=== PATIENT | male | born 1970 | race Caucasian/White ===

== ENCOUNTER 2022-01-09 09:09 | Observation (INO) | payer OTHER ==
[2022-01-09 10:36] LABS: BASO % 0.3 % (0-2.0); EOS % 0.3 % (0-4.5); HEMATOCRIT 42.9 % (35.4-49); HEMOGLOBIN 14.5 GM/dL (11.7-16.9); LYMPH % 12.9 % (8-40); MCH 28.6 pg (25.7-33.7); MCHC 33.8 g/dl (32.0-35.9); MEAN CELL VOLUME 84.5 fl (80-96); MEAN PLT VOLUME 7.1 fl (7.5-11.1); MONO % 5.6 % (3.8-10.2); NEUT % 80.9 % (42.8-82.8); PLATELET COUNT 190 10^3/uL (134-434); RBC 5.08 M/mm3 (4.00-5.60); RDW 13.2 % (11.9-15.9); WHITE BLOOD COUNT 8.1 K/mm3 (4.0-10.0)
[2022-01-09 10:46] LABS: EPI CELLS 4 /uL (0-25.1); HYALINE CASTS 1 /uL (0-3.1); PH,URINE 7.5 (5.0-8.0); URINE APPEARANCE CLEAR; URINE BACTERIA 3 /uL (0-1359); URINE BILIRUBIN NEGATIVE (NEGATIVE); URINE COLOR YELLOW; URINE GLUCOSE (UA) NEGATIVE (NEGATIVE); URINE KETONE TRACE (NEGATIVE); URINE LEUK ESTERASE NEGATIVE (NEGATIVE); URINE NITRITE NEGATIVE (NEGATIVE); URINE PROTEIN NEGATIVE (NEGATIVE); URINE RBC 31 /uL (0-23.9); URINE UROBILINOGEN 0.2 mg/dL (0.2-1.0); URINE WBC 5 /uL (0-25.8)
[2022-01-09 11:03] LABS: CALCIUM 8.8 mg/dL (8.5-10.1)
[2022-01-09 11:04] LABS: ALBUMIN 4.2 g/dl (3.4-5.0)
[2022-01-09 11:07] LABS: CREATININE 0.9 mg/dL (0.55-1.3)
[2022-01-09 11:09] LABS: BILIRUBIN,TOTAL 0.5 mg/dL (0.2-1); TOT PROT 7.2 g/dl (6.4-8.2)
[2022-01-09] MEDS ORDERED: SODIUM CHLORIDE 0.9% 500 ML INFUS.BAG IV ONE (13:58)
[2022-01-09] MEDS ORDERED: ACETAMINOPHEN 1000 MG/100 ML BAG IVPB ONE (13:58)
[2022-01-09] MEDS ORDERED: KETOROLAC TROMETHAMINE 15 MG/ML VIAL IVPUSH ONE (13:58)
[2022-01-09] MEDS ORDERED: TAMSULOSIN HCL 0.4 MG CAP PO ONE (13:58)
[2022-01-09] MEDS ORDERED: ACETAMINOPHEN 1000 MG/100 ML BAG IVPB PRN (14:36)
[2022-01-09] MEDS ORDERED: LACTATED RINGERS SOLUTION 1,000 ML/1,000 ML INFUS.BAG IV SCH (14:45)
[2022-01-09] MEDS ORDERED: TAMSULOSIN HCL 0.4 MG CAP ONE (15:21)
[2022-01-09] MEDS ORDERED: KETOROLAC TROMETHAMINE 15 MG/ML VIAL IVPUSH PRN (19:00)
[2022-01-10] MEDS ORDERED: BENAZEPRIL HCL 40 MG PO SCH (07:00)
[2022-01-10] MEDS ORDERED: LISINOPRIL 20 MG TABLET PO SCH (07:00)
[2022-01-10] MEDS ORDERED: amLODIPine BESYLATE 5 MG TABLET (FP) PO SCH (07:00)
[2022-01-10 07:15] VITALS: BMI 26.6
[2022-01-10 11:02] LABS: HEMATOCRIT 42.1 % (35.4-49); MCH 28.2 pg (25.7-33.7); MCHC 33.3 g/dl (32.0-35.9); MEAN CELL VOLUME 84.7 fl (80-96); PLATELET COUNT 161 10^3/uL (134-434); RBC 4.96 M/mm3 (4.00-5.60); WHITE BLOOD COUNT 4.3 K/mm3 (4.0-10.0)
[2022-01-10 11:10] LABS: INR 1.15 (0.83-1.09); PROTHROMBIN TIME (PATIENT) 13.2 SEC (9.7-13.0)
[2022-01-10 11:13] LABS: ACTIVATED PTT 31.8 SECONDS (25.2-36.5)
[2022-01-10 11:28] LABS: CALCIUM 8.7 mg/dL (8.5-10.1)
[2022-01-10 11:29] LABS: BLOOD UREA NITROGEN 7.8 mg/dL (7-18); MAGNESIUM 2.2 mg/dL (1.8-2.4)
[2022-01-10 11:33] LABS: CREATININE 0.8 mg/dL (0.55-1.3)
[2022-01-10 11:35] LABS: PHOSPHOROUS 2.6 mg/dL (2.5-4.9)
[2022-01-10] MEDS ORDERED: ACETAMINOPHEN 1000 MG/100 ML BAG IVPB PRN (12:50)
[2022-01-10] MEDS ORDERED: TAMSULOSIN HCL 0.4 MG CAP PO SCH (13:00)
[2022-01-10] MEDS ORDERED: LACTATED RINGERS SOLUTION 1,000 ML/1,000 ML INFUS.BAG IV SCH ×2 (13:45→15:59)
[2022-01-10] MEDS ORDERED: ONDANSETRON 4 MG/2 ML VIAL IVPUSH PRN ×2 (14:27→15:59)
[2022-01-10] MEDS ORDERED: IOVERSOL 300 MG/ML ML IV ONE ×2 (14:32→14:59)
[2022-01-10] MEDS ORDERED: LIDOCAINE HCL/PF 2% SDV 5ML VIAL ONE (14:40)
[2022-01-10] MEDS ORDERED: ceFAZolin SODIUM 1 GM VIAL ONE ×2 (14:40→15:05)
[2022-01-10] MEDS ORDERED: PROPOFOL 20 ML ONE ×2 (14:40)
[2022-01-10] MEDS ORDERED: MIDAZOLAM HCL 2 MG/2 ML SINGLE DOSE VIAL ONE (14:40)
[2022-01-10] MEDS ORDERED: ceFAZolin 2 GRAM PREMIX BAG IVPB ONE (14:47)
[2022-01-10] MEDS ORDERED: DEXAMETHASONE SOD PHOSPHATE 4 MG/1 ML VIAL ONE (15:05)
[2022-01-10] MEDS ORDERED: LIDOCAINE HCL 2% JELLY 10 ML CARTRIDGE ONE (15:19)
[2022-01-10] MEDS ORDERED: LIDOCAINE HCL 2% JELLY 10 ML CARTRIDGE TP ONE (15:20)
[2022-01-10] MEDS ORDERED: SODIUM CHLORIDE 1,000 ML IV SCH (18:00)
[2022-01-10] MEDS: KETOROLAC TROMETHAMINE 15 MG/ML VIAL IM PRN (18:16)
[2022-01-11] MEDS: KETOROLAC TROMETHAMINE 15 MG/ML VIAL IM PRN (03:56)
[2022-01-11] MEDS ORDERED: amLODIPine BESYLATE 5 MG TABLET (FP) PO SCH (07:00)
[2022-01-11] MEDS ORDERED: LISINOPRIL 20 MG TABLET PO SCH (07:00)
[2022-01-11] MEDS ORDERED: TAMSULOSIN HCL 0.4 MG CAP PO SCH (08:30)
[2022-01-11 09:40] VITALS: BP 110/72; PULSE 88; TEMP 99.7
[2022-01-11 09:55] LABS: HEMATOCRIT 44.5 % (35.4-49); HEMOGLOBIN 14.6 GM/dL (11.7-16.9); MCH 28.4 pg (25.7-33.7); MCHC 32.9 g/dl (32.0-35.9); MEAN CELL VOLUME 86.4 fl (80-96); MEAN PLT VOLUME 7.3 fl (7.5-11.1); MONO % 5.9 % (3.8-10.2); NEUT % 81.1 % (42.8-82.8); PLATELET COUNT 210 10^3/uL (134-434); RBC 5.15 M/mm3 (4.00-5.60); RDW 13.1 % (11.9-15.9); WHITE BLOOD COUNT 10.7 K/mm3 (4.0-10.0)
[2022-01-11 10:28] LABS: CALCIUM 9.1 mg/dL (8.5-10.1)
[2022-01-11 10:29] LABS: BLOOD UREA NITROGEN 13.3 mg/dL (7-18); MAGNESIUM 2.2 mg/dL (1.8-2.4)
[2022-01-11 10:32] LABS: CREATININE 0.9 mg/dL (0.55-1.3); PHOSPHOROUS 3.2 mg/dL (2.5-4.9)
[2022-01-11 10:33] LABS: BILIRUBIN,TOTAL 0.8 mg/dL (0.2-1)
== END 2022-01-11 13:39 | disposition home or self-care (01) ==
LOC: JER 09:09 → INTOOBSV 13:56 → UNDOADMOB 13:56 → JERBED 13:56 → J8W 20:38
PROVIDERS: ADMIT Internal Medicine
PROC: 0TC68ZZ Extirpation of Matter from Right Ureter, Via Natural or Artificial Opening Endoscopic (ICD-10-PCS; principal; 2022-01-09)
PROC: 0T768DZ Dilation of Right Ureter with Intraluminal Device, Via Natural or Artificial Opening Endoscopic (ICD-10-PCS; 2022-01-09)
PROC: BT1DYZZ Fluoroscopy of Right Kidney, Ureter and Bladder using Other Contrast (ICD-10-PCS; 2022-01-09)
PROC: 0WHR8YZ Insertion of Other Device into Genitourinary Tract, Via Natural or Artificial Opening Endoscopic (ICD-10-PCS; 2022-01-09)
PROC: 3E03329 Introduction of Other Anti-infective into Peripheral Vein, Percutaneous Approach (ICD-10-PCS; 2022-01-09)
PROC: 3E033NZ Introduction of Analgesics, Hypnotics, Sedatives into Peripheral Vein, Percutaneous Approach (ICD-10-PCS; 2022-01-09)
PROC: 3E0337Z Introduction of Electrolytic and Water Balance Substance into Peripheral Vein, Percutaneous Approach (ICD-10-PCS; 2022-01-09)
DX: N20.1 Calculus of ureter (principal); I10 Essential (primary) hypertension; Z29.9 Encounter for prophylactic measures, unspecified
CPT/HCPCS: 36415; 74176-TC; 76000-TC-FY; 76870-TC; 80048; 80053; 81003; 82550; 82553; 82962; 83735; 84100; 85025; 85027; 85610; 85730; 86850; 86900; 86901; 87086; 93005; 93010; 94010; 94760; 96374; 96375; 99285-25; C9803; G0378; U0003; U0005

== ENCOUNTER 2022-01-15 21:07 | Emergency (ER) | payer OTHER ==
[2022-01-15 21:15] VITALS: BMI 25.8
[2022-01-15] MEDS ORDERED: KETOROLAC TROMETHAMINE 15 MG/ML VIAL IVPUSH ONE (21:59)
[2022-01-15] MEDS ORDERED: ACETAMINOPHEN 1000 MG/100 ML BAG IVPB ONE (21:59)
[2022-01-15] MEDS ORDERED: KETOROLAC TROMETHAMINE 15 MG/ML VIAL ONE (23:14)
[2022-01-15] MEDS ORDERED: ACETAMINOPHEN INJECTION 100 ML IVPB ONE (23:14)
[2022-01-15 23:45] LABS: BASO % 0.2 % (0-2.0); EOS % 0.3 % (0-4.5); HEMATOCRIT 43.4 % (35.4-49); HEMOGLOBIN 14.4 GM/dL (11.7-16.9); LYMPH % 8.3 % (8-40); MCH 28.1 pg (25.7-33.7); MCHC 33.2 g/dl (32.0-35.9); MEAN CELL VOLUME 84.8 fl (80-96); MONO % 6.1 % (3.8-10.2); NEUT % 85.1 % (42.8-82.8); PLATELET COUNT 202 10^3/uL (134-434); RBC 5.12 M/mm3 (4.00-5.60); RDW 13.2 % (11.9-15.9); WHITE BLOOD COUNT 8.3 K/mm3 (4.0-10.0)
[2022-01-15 23:54] LABS: INR 1.11 (0.83-1.09); PROTHROMBIN TIME (PATIENT) 12.8 SEC (9.7-13.0)
[2022-01-15 23:56] LABS: ACTIVATED PTT 31.7 SECONDS (25.2-36.5)
[2022-01-15 23:59] LABS: BLOOD UREA NITROGEN 18.5 mg/dL (7-18); CALCIUM 9.1 mg/dL (8.5-10.1)
[2022-01-16 00:04] LABS: BILIRUBIN,TOTAL 0.3 mg/dL (0.2-1); TOT PROT 7.2 g/dl (6.4-8.2)
[2022-01-16 00:55] VITALS: TEMP 98.4
[2022-01-16 01:10] LABS: EPI CELLS 9 /uL (0-25.1); HYALINE CASTS 3 /uL (0-3.1); PH,URINE 5.5 (5.0-8.0); URINE APPEARANCE CLEAR; URINE BACTERIA 2 /uL (0-1359); URINE BILIRUBIN NEGATIVE (NEGATIVE); URINE COLOR YELLOW; URINE GLUCOSE (UA) NEGATIVE (NEGATIVE); URINE KETONE NEGATIVE (NEGATIVE); URINE LEUK ESTERASE TRACE (NEGATIVE); URINE NITRITE NEGATIVE (NEGATIVE); URINE PROTEIN 2+ (NEGATIVE); URINE RBC 963 /uL (0-23.9); URINE UROBILINOGEN 0.2 mg/dL (0.2-1.0); URINE WBC 45 /uL (0-25.8)
[2022-01-16 02:41] VITALS: BP 106/66; PULSE 81
== END 2022-01-16 02:30 | disposition home or self-care (01) ==
LOC: JER 21:07
PROC: 3E0333Z Introduction of Anti-inflammatory into Peripheral Vein, Percutaneous Approach (ICD-10-PCS; principal; 2022-01-15)
PROC: 3E0333Z Introduction of Anti-inflammatory into Peripheral Vein, Percutaneous Approach (ICD-10-PCS; 2022-01-15)
DX: R10.9 Unspecified abdominal pain (principal)
CPT/HCPCS: 36415; 74176-TC; 80053; 81003; 85025; 85610; 85730; 86850; 86900; 86901; 99284-25